=== PATIENT | male | born 1980 | race Caucasian/White ===

== ENCOUNTER 2020-03-08 12:55 | Outpatient (CLI) | payer OTHER, SELFPAY ==
--- NOTE | ~2020-03-08 | MR_ITS ---
EXAMINATION: MR brain/brain stem wo con DATE: 03/08/2020 13:45 INDICATION: Unspecified convulsions. Syncope. TECHNIQUE: Magnetic resonance imaging (MRI) of the brain and brainstem was performed without intraven ous contrast. Sequences included sagittal and axial T1-weighted FSE, axial diffusion-weighted FS EPI, axial T2*-weighted GRE, axial T2-weighted FLAIR Propeller, axial T2-weighted Propeller, coronal T2-w eighted FLAIR, and coronal T1-weighted 3D FSPGR. Apparent diffusion coefficient (ADC) maps were creat ed. COMPARISON: None. FINDINGS: There is no intracranial hemorrhage, acute infarction, or abnormal intracranial mass lesion . The hippocampi are normal and symmetric. There are scattered areas of nonspecific increased T2-weig hted signal intensity in the cerebral white matter, which is within normal limits for the patient's a ge. The ventricles are normal in size. There is mild mucosal thickening in left maxillary sinus. The orbits are normal. The mastoid air cells are normal. IMPRESSION: 1. Normal aging brain. Reviewed, dictated and finalized at location A. ER [employer] IMPRESSION: 1. Normal aging brain.
== END 2020-03-08 12:56 | disposition home or self-care (01) ==
PROVIDERS: PCP Nurse Practitioner Family; Visit Provider Nurse Practitioner
DX: R56.9 Unspecified convulsions (principal); R55 Syncope and collapse
CPT/HCPCS: 70551

== ENCOUNTER 2020-03-15 10:38 | Outpatient (CLI) | payer OTHER, SELFPAY ==
--- NOTE | 2020-03-15 10:46 | EST_ITS ---
Patient Info Name: Raine Morrison Age: 39 years : 1980 Gender: Male Exam Date: 03/15/2020 11:47 AM Exam Location: [facility], [place] Stress Patient Status: Outpatient Admit Date: 03/15/2020 Staff Ordering Physician: Janene Nascimento NP Attending Provider: Janene Nascimento NP Exercise Technologist: Nancy Arguelles CT Exercise Physician: Jim Reece DO Exam Type: CA stress test treadmill Study Info Indications R55 - Syncope and collapse A treadmill exercise stress test was performed. Summary 1. 1. Negative [place] exercise stress test for ischemic ST changes by ECG criteria. 2. 2. Good functional capacity, achieving 11 METs of workload. 3. 3. Baseline hypertension. 4. 4. Appropriate HR response to exercise. 5. 5. Appropriate HR recovery at 1 minute post exercise. 6. 6. No imaging with stress testing. 7. 7. Patient informed of the above results. Rest HR: 91 bpm Peak HR: 165 bpm Rest Sys BP: 167 mmHg Peak Sys BP: 217 mmHg Max Pred HR: 179 bpm % Max Pred HR: 92 % Target HR: 152 bpm Max RPP: 35,805 bpm*mmHg Termination Reason: Reached target heart rate or workload Cardiac Symptoms: Shortness of breath Rest Sommers BP: 109 mmHg Peak Sommers BP: 108 mmHg Resting ECG Sinus rhythm, IRBBB. Stress ECG No ST changes. Arrhythmias None. Report Signatures
== END 2020-03-15 10:39 | disposition home or self-care (01) ==
LOC: ANHCARD 10:39
PROVIDERS: PCP Nurse Practitioner Family; Visit Provider Nurse Practitioner
DX: R55 Syncope and collapse (principal); I10 Essential (primary) hypertension
CPT/HCPCS: 93017

== ENCOUNTER 2020-04-08 07:40 | Outpatient (CLI) | payer OTHER, MEDICAID, SELFPAY ==
--- NOTE | ~2020-04-08 | US_ITS ---
EXAMINATION: US carotid duplex BI DATE: 04/08/2020 08:18 INDICATION: Carotid stenosis. Syncope. TECHNIQUE: Grayscale, color Doppler, and pulsed Doppler images of the cervical carotid arteries were obtained. The degree of vessel stenosis is placed in one of the following categories: normal, <50%, 5 0-69%, >=70% but less than near-occlusion, near-occlusion, or total occlusion. Note that percent sten osis relative to normal distal artery lumen diameter is indirectly measured from velocity measurement s as described by Dave, et al. Radiology 2003; 229:[id number]. Notes: Normal: Peak systolic velocity <125 centimeters/sec and no plaque <50%. Peak systolic velocity <125 ( EDV <40; ICA/CCA PSV ratio <2.0; used these factors only a tandem lesions or low cardiac output or co ntralateral disease) 50-69 %: PSV 125-230 (EDV 40-100; ratio 2-4) >= 70% but less than near occlusion: PSV greater than 230 (EDV > 100; ratio> 4.0) Near Occlusion: PSV that is variable; markedly narrowed lumen Occlusion: Absent flow on color/spectral Doppler and no lumen on velasco scale. COMPARISON: None. FINDINGS: RIGHT: The right common carotid artery (CCA) peak systolic velocity (PSV) is 107 cm/s. The right internal ca rotid artery (ICA) PSV is 42 cm/s. The right ICA end-diastolic velocity (EDV) is 18 cm/s. The right I CA/CCA PSV ratio is 0.4. The external carotid artery (ECA) PSV is 66 cm/s. There is antegrade flow in the right vertebral artery. LEFT: The left CCA PSV is 90 cm/s. The left ICA PSV is 53 cm/s. The left ICA EDV is 27 cm/s. The left ICA/C CA PSV ratio is 0.6. The ECA PSV is 51 cm/s. There is antegrade flow in the left vertebral artery. IMPRESSION: 1. Less than 50% stenosis in the right internal carotid artery by sonographic criteria. 2. Less than 50% stenosis in the left internal carotid artery by sonographic criteria. Reviewed, dictated and finalized at location B. ER COMPRESSED GASES IMPRESSION: 1. Less than 50% stenosis in the right internal carotid artery by sonographic quinten baptiste. 2. Less than 50% stenosis in the left internal carotid artery by sonographic ramu howard.
== END 2020-04-08 07:41 | disposition home or self-care (01) ==
LOC: ANHIMG 07:44
PROVIDERS: PCP Nurse Practitioner Family; Visit Provider Nurse Practitioner
DX: R55 Syncope and collapse (principal); I65.23 Occlusion and stenosis of bilateral carotid arteries
CPT/HCPCS: 93880

== ENCOUNTER 2020-07-28 17:24 | Emergency (ER) | payer OTHER, MEDICAID, SELFPAY ==
[2020-07-28 17:37] VITALS: BP 175/124; PULSE 117; RESP 18; TEMP 36.9; O2SAT 99
[2020-07-28] MEDS: LIDOCAINE, EPINEPHRINE, TETRACAINE VISCOUS SOLN 3 ML TOPICAL (17:44)
[2020-07-28] MEDS: TETANUS,DIPHTHERIA,AC PERTUSSIS ADULT (0.5 ML) BOOSTRIX IM (17:47)
--- NOTE | 2020-07-28 18:22 | ED.WOUNDLAC ---
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 Patient states he was working on a truck when he lacerated his left small finger an hour or 2 prior to arrival, on plastic. He complains of mild pain and bleeding is worse with movement, better with elevation or compression, located at the lateral PIP crease area. No numbness/weakness, other injury. Screening vital signs remarkable for high blood pressure, for which he had a stress test in the past half year which is noncontributory except for known untreated HTN [along with stable/noncontributory blood work]. Related Data Allergies Allergy/AdvReac Type Severity Reaction Status Date / Time pseudoephedrine Allergy Intermediate hives Verified 02/20/20 09:40 [From Sudafeghassan] codeine Allergy Unknown hives Verified 02/20/20 09:40 diphenhydramine Allergy Unknown hives Verified 02/20/20 09:40 Penicillins Allergy Unknown Verified 07/28/20 17:37 DIPHENHYDRAMINE HCL AdvReac Unknown NAUSEA Uncoded 02/20/20 09:40 Review of Systems Review of Systems: Narrative: General/Constitutional: No weight loss,fever Eyes: N0: Redness,discharge Ears/Nose/Throat: No: Epistaxis,ear discharge Respiratory: Denies: Hemoptysis Gastrointestinal: No Vomiting, Bleeding-rectal Skin: No Lumps, eruption Neurologic: No Focal Weakness,Sz Hematologic: Denies: Petechiae/Purpura Psychiatric: No: Suicida ideationl All Other Systems: Reviewed and Negative [facility] Surgical History Surgical History (System 02/20/20 @ 09:40 by Anna Levine) H/O left wrist surgery Family History Family History (System 02/20/20 @ 09:40 by Anna Levine) Mother Hypertension Sibling Seizure Hypertension Social History Social History (System 02/20/20 @ 09:40 by Anna Levine) Smoking status: Current every day smoker Alcohol intake: current Comments At time of signature, agree with nursing past medical, surgical, social and family history. There is no relevant family history pertinent to the presenting complaint Exam Narrative: Exam Narrative: General Appearance: Well appearing, Conjunctiva clear Mouth/Throat: Normal appearing, Normal lips: Supple Respiratory: Airway patent, No respiratory distress MS- finger: Normal strength (mostly intact, limited flexion/extension by pain), Tenderness ( laterally, with mild decreased ROM), Scant swelling y), Other (no anterior drawer, no collateral laxity Skin: Warm, Dry, Normal color Neurological: A&O x3, Speech clear, CN II-XII intact Psychiatric: Normal mood, Normal affect Course Vital Signs Vital signs: Vital Signs Temperature 98.5 F 07/28/20 17:37 Pulse Rate 117 H 07/28/20 17:37 Respiratory Rate 18 07/28/20 17:37 Blood Pressure 175/124 H 07/28/20 17:37 Pulse Oximetry 99 07/28/20 17:37 Temperature 98.5 F 07/28/20 17:37 Pulse Rate 117 H 07/28/20 17:37 Respiratory Rate 18 07/28/20 17:37 Blood Pressure 167/111 H 07/28/20 18:31 Pulse Oximetry 99 07/28/20 17:37 Procedures Laceration Laceration 1: Date: 07/28/20 Site: hand Side (If applicable): left Size (cm): 1.5 Description: flap Depth: simple, single layer Local Anesthetic: none (LET) Pre-repair: irrigated extensively ====== Skin Level ====== Skin layer closed with: nylon Size (cm): 5-0 Number of sutures: 3 Technique: simple, interrupted ====== Subcutaneous Layer ====== ====== Muscle Layer ====== ====== Tendon Layer ====== Discharge Plan Discharge Clinical Impression: Laceration of left little finger Qualifiers: Encounter type: initial encounter D
[2020-07-28 18:31] VITALS: BP 167/111
== END 2020-07-28 18:32 | disposition home or self-care (01) ==
PROVIDERS: Emergency Provider Emergency Medicine
DX: S61.217A Laceration without foreign body of left little finger without damage to nail, initial encounter (principal); W45.8XXA Other foreign body or object entering through skin, initial encounter; Y99.0 Civilian activity done for income or pay; Z23 Encounter for immunization; F17.200 Nicotine dependence, unspecified, uncomplicated
CPT/HCPCS: 12001; 90471; 90715; 99213; G0463

== ENCOUNTER 2022-06-18 14:00 | Outpatient (RCR) | payer OTHER, SELFPAY ==
--- NOTE | 2022-04-06 09:18 | PTOPEVAL1 ---
Assessment and note entered by Jose Armando Agrawal, PT Evaluation Information Assessment Status Evaluation Diagnosis S/P PLIF C2-C4 01/15/22 Subjective Information Patient reports he had an accident doing a flip into the foam pit and had a C3 fx. Had surgery on 01/15/22. Saw neurosurgery on 03/17/22 and was told to start physical therapy, can take the collar off when showering, has a 15 lbs lifting restriction, and sleep in bed instead of sitting up. Reported Pain Level Pain Score 4: Self Report Additional Pain Score Comments Worst after being at work, reports he does not break lifting restrictions. Assessment PT Clinical Summary Raine is a 41 year old male coming into the clinic with diagnosis of C2-C4 fusion following C3 fx. Patient is in the [facility] hard cervical collar, but reports he is working on getting a soft collar with neurosurgery's okay. Patient has decreased cervical range of motion with decreased strength. Physical therapy will work on improving strength and endurance and progress back to prior injury level of function with okay from neurosurgery. Plan of Care Interventions Electrical Stimulation,Gait Training,Hot Pack/Cold Pack,Manual Therapy,Neuro Re-education,Patient/ Caregiver Education,Therapeutic Activities, Therapeutic Exercise,Ultrasound PT Services Indicated Yes Treatment Frequency and 2x/wk for 6 weeks Duration These treatments will address the objective and functional deficits as defined above. The patient will be advanced safely and appropriately in order for the patient to progress towards his/her prior level of function. Additional exercises will be introduced and as well as a comprehensive home exercise program upon discharge, if needed, ?to ensure carryover of functional gains achieved in the clinic. This treatment plan has been reviewed and agreement upon by the patient.
--- NOTE | 2022-04-09 08:45 | PCPTNOTE ---
Called Pt about missed appointment and Pt rescheduled due to thinking his appointment was tomorrow. Pt is scheduled for 04/10/22 @ 14:00.
--- NOTE | 2022-05-18 16:23 | PCPTNOTE ---
Patient did not show up for scheduled appointment this date. Left voicemail on phone to reschedule or discharge.
--- NOTE | 2022-05-21 10:24 | PTOPREEVAL ---
Assessment and note entered by Jose Armando Agrawal, PT Evaluation Information Assessment Status Re-evaluation Diagnosis S/P PLIF C2-C4 01/15/22 Subjective Information Patient reports he has returned to work. He is still wearing his cervical collar. Reports he does his exercises with his daughters. Father recently passed which is why he no showed on his last appointment, Reported Pain Level Pain Score 4: Self Report Additional Pain Score Comments Patient reports pain is constantly 3-4/10 with 7 at its worst. Assessment PT Clinical Summary Adin is a 41 year old male coming to the clinic for post op cervical ROM and strengthening. He was evaluated on Apr 06 and attended 12 sessions with 2 no shows. The patient still has decreased in range of motion, but talked to him and that there is no reason that he needs to be in the cervical collar as much as he is and needs to start getting out of it more if he wants more range of motion. That being said he did increased his cervical range of motion in all planes. Recommend continued physical therapy. Plan of Care Interventions Electrical Stimulation,Gait Training,Hot Pack/Cold Pack,Manual Therapy,Neuro Re-education,Patient/ Caregiver Education,Therapeutic Activities, Therapeutic Exercise,Ultrasound Other Interventions taping PT Services Indicated Yes Treatment Frequency and 1-2x/wk for 4 weeks Duration These treatments will address the objective and functional deficits as defined above. The patient will be advanced safely and appropriately in order for the patient to progress towards his/her prior level of function. Additional exercises will be introduced and as well as a comprehensive home exercise program upon discharge, if needed, ?to ensure carryover of functional gains achieved in the clinic. This treatment plan has been reviewed and agreement upon by the patient.
--- NOTE | 2022-06-18 14:30 | PTOPDC ---
Assessment and note entered by Jose Armando Agrawal, PT Evaluation Information Assessment Status Discharge Diagnosis cervical spinal fusion Subjective Information Patient reports pain at a 2/10 at its worst, returned to work working 10-12 hours a day, able to lift up his daughter without issue, but anything above 35 pounds is still hard. Unsure when his next surgical follow-up is or if he has one. No longer wearing the brace. Reported Pain Level Pain Score 2: Self Report Assessment PT Clinical Summary Doc is a 41 year old male coming into the clinic after having a cervical fusion surgery. He has met his pain, sensation, strength, and return to work goals along with flexion, extension, and MARYAM lateral flexion goals. Has not met rotation yet, but do not believe the patient needs to continue skilled physical therapy just for rotation goal. Discharged from skilled physical therapy at this time. He has returned to work, but if surgeon feels he needs more to do his job duties recommend going to a facility that has a work hardening program. Plan of Care PT Services Indicated No
== END 2022-06-22 09:51 | disposition home or self-care (01) ==
LOC: ANHPT 14:00
PROVIDERS: PCP Family Medicine
DX: Z47.89 Encounter for other orthopedic aftercare (principal); Z98.1 Arthrodesis status
CPT/HCPCS: 97110; 97112; 97140; 97161; 97530; 99199

== ENCOUNTER 2023-06-28 06:15 | Day surgery (SDC) | payer OTHER, SELFPAY ==
[2023-06-01 13:37] VITALS: BMI 23.4
[2023-06-11 11:27] VITALS: BMI 23.3
[2023-06-28 07:32] VITALS: BP 150/108; PULSE 96; RESP 18; TEMP 36.6; O2SAT 100
--- NOTE | 2023-06-28 07:36 | WPDANESEPPF ---
Anes - Initial Pre Proc Eval Procedure: Operation Date: 06/28/23 08:30 Proposed Procedures p Screening Colonoscopy - Roverto Henry DO Date/Time: 06/28/23 07:36 Surgeon: Roverto Henry DO Pre Op Diagnosis: Neoplasm screening Patient Data Age: 43 Gender: M Height: 1.65 m Weight: 63.65 kg Last Vital Signs Temp 36.6 C 06/28/23 07:32 Pulse 96 06/28/23 07:32 Resp 18 06/28/23 07:32 BP 150/108 H 06/28/23 07:32 Pulse Ox 100 06/28/23 07:32 O2 Del Method Room Air 06/28/23 07:32 Allergies Allergy/AdvReac Type Severity Reaction Status Date / Time pseudoephedrine Allergy Intermediate hives Verified 06/28/23 07:30 [From [facility]] codeine Allergy Unknown hives Verified 06/28/23 07:30 diphenhydramine Allergy Unknown hives Verified 06/28/23 07:30 Penicillins Allergy Unknown Verified 06/28/23 07:30 Home Medications Medication Instructions Recorded Confirmed Type aspirin 81 mg tablet,delayed 81 mg PO DAILY 04/15/21 06/28/23 History release lisinopril 20 mg tablet 20 mg PO DAILY #30 tabs 09/16/21 06/28/23 Rx metoprolol tartrate 25 mg tablet 25 mg PO BID #60 tabs 05/10/23 06/28/23 Rx Patient hx anesthesia problems: none Family hx anesthesia problems: none Results Review: All pre-operative results and documents have been reviewed as part of the pre-operative evaluation. [facility] Past Medical History Medical History (Updated 06/28/23 @ 08:50 by Roverto Henry DO) C3 cervical fracture HTN (hypertension) FERNANDA (obstructive sleep apnea) Seizure Surgical History Surgical History H/O left wrist surgery Family History Family History Mother Hypertension Sibling Seizure Hypertension Heart disease Social History Social History Smoking packs per day: 1 Smoking cigarettes per day: 20.0 Years smoked: 25 Smoking pack-years: 25.00 Smoking status: Current every day smoker Tobacco type: cigarettes Second hand tobacco smoke exposure: Yes Alcohol intake: former Substance use: current Substance use type: marijuana Living arrangements: with family Occupation/Education: occupation Gender identity (if verbalized by the patient): Male Sexual Orientation (if Verbalized by the Patient): Straight or Heterosexual Spiritual care concerns: No Anes - Eval Final PreProcedure Day of Procedure 06/28/23 07:36 Patient weight: normal Heart: regular rate and rhythm Lungs: clear to auscultation and normal air movement Airway: Mallampati scale class II Neurological: alert and oriented Last oral intake: >/= 8 hours ASA classification: III Emergent: no Anesthetic plan: proceed Anesthesia type and monitoring: general GIVS and standard monitoring Results Review: All pre-operative results and documents have been reviewed as part of the pre-operative evaluation. Informed Consent: The patient's anesthetic plan and its attendant risks and benefits were discussed with the patient/family/POA. Questions were solicited and answers provided to the satisfaction of the patient/family/POA.
[2023-06-28] MEDS: LACTATED RINGERS 1,000 ML 150 ML IV CONT (07:43)
--- NOTE | 2023-06-28 08:49 | PM.IMHP ---
H&P: HPI History of Present Illness Date/Time: 06/28/23 08:49 Chief Complaint: screening for colorectal cancer Narrative: this is a 43-year-old man who presents for colonoscopy. He has never had a colonoscopy before. He did see any family history of colon cancer and denies any hematochezia or melena. Review of Systems Review of Systems: All systems reviewed & are unremarkable except as noted in HPI and below Constitutional: Constitutional: Denies chills, Denies fever(s), Denies headache(s) and Denies weight loss Eyes: Eyes: Denies change in vision ENT: Denies dizziness, Denies headache(s), Denies neck mass and Denies throat swelling Cardiovascular: Cardiovascular: Denies chest pain, Denies lightheadedness and Denies dyspnea Respiratory: Respiratory: Denies cough, Denies dyspnea and Denies wheezing Gastrointestinal: Gastrointestinal: Denies abdominal pain, Denies change in bowel habits, Denies nausea and Denies vomiting Genitourinary: Genitourinary: Denies hematuria and Denies dysuria Musculoskeletal: Musculoskeletal: Reports as per HPI Integumentary/Breasts: Skin/Breast: Reports as per HPI Neurologic: Denies dizziness and Denies headache(s) Allergic/Immunologic: Allergic/Immunologic: Denies throat swelling and Denies wheezing [facility] Past Medical History Medical History (Updated 06/28/23 @ 08:50 by Roverto Henry DO) C3 cervical fracture HTN (hypertension) FERNANDA (obstructive sleep apnea) Seizure Surgical History Surgical History H/O left wrist surgery Family History Family History Mother Hypertension Sibling Seizure Hypertension Heart disease Social History Social History Smoking packs per day: 1 Smoking cigarettes per day: 20.0 Years smoked: 25 Smoking pack-years: 25.00 Smoking status: Current every day smoker Tobacco type: cigarettes Second hand tobacco smoke exposure: Yes Alcohol intake: former Substance use: current Substance use type: marijuana Living arrangements: with family Occupation/Education: occupation Gender identity (if verbalized by the patient): Male Sexual Orientation (if Verbalized by the Patient): Straight or Heterosexual Spiritual care concerns: No Meds Home Medications and Allergies Home Medications Medication Instructions Recorded Confirmed Type aspirin 81 mg tablet,delayed 81 mg PO DAILY 04/15/21 06/28/23 History release lisinopril 20 mg tablet 20 mg PO DAILY #30 tabs 09/16/21 06/28/23 Rx metoprolol tartrate 25 mg tablet 25 mg PO BID #60 tabs 05/10/23 06/28/23 Rx Allergies Allergy/AdvReac Type Severity Reaction Status Date / Time pseudoephedrine Allergy Intermediate hives Verified 06/28/23 07:30 [From Sudafed] codeine Allergy Unknown hives Verified 06/28/23 07:30 diphenhydramine Allergy Unknown hives Verified 06/28/23 07:30 Penicillins Allergy Unknown Verified 06/28/23 07:30 Vital Signs Vital Signs - 24 hr 06/28/23 07:32 Temperature 36.6 C Pulse Rate 96 Respiratory Rate 18 Blood Pressure 150/108 H Pulse Oximetry 100 Oxygen Delivery Room Air Exam Const: General: no acute distress and alert Orientation/consciousness: patient oriented x3 HENMT: Head: normocephalic and atraumatic Ears: hearing grossly normal bilaterally Face/Nose/Sinus: Normal nares present Mouth: Yes Normal oral and palatal mucosa present Eyes: Periorbital: periorbital findings normal Sclera: sclerae normal EOM: EOMs intact bilaterally Neck: Neck: normal visual inspection, no lymphadenopathy and trachea midline Chest: Chest palpation & inspection: normal inspection of the chest Resp: Effort & Inspection: normal respiratory effort Auscultation: clear to auscultation bilaterally Cardio: Jugular venous distension: no JVD Rate: regular rate Rhythm
[2023-06-28 09:22] VITALS: BP 114/86; PULSE 90; RESP 20; O2SAT 100
[2023-06-28 09:32] VITALS: BP 127/97; PULSE 84; RESP 14; O2SAT 100
[2023-06-28 09:42] VITALS: BP 149/105; PULSE 80; RESP 14; O2SAT 100
--- NOTE | 2023-06-28 10:36 | WPDANESPN ---
Anes - Prog Note Post-Op Date/Time: 06/28/23 10:36 Cardiovascular status: normal Respiratory status: normal Airway patency: baseline Mental status: baseline Post-Op hydration status: normal Vital Signs: Last Vital Signs Temp 36.6 C 06/28/23 07:32 Pulse 80 06/28/23 09:42 Resp 14 06/28/23 09:42 BP 149/105 H 06/28/23 09:42 Pulse Ox 100 06/28/23 09:42 O2 Del Method Room Air 06/28/23 09:42 Pain Score (VAS): 0 I/O: Intake & Output 06/27/23 06/28/23 06/28/23 23:59 07:59 15:59 Intake Total 700 Balance 700 Post-procedural complaints: none Patient Feedback: Patient satisfied with anesthetic care. Other Findings: Patient vital signs back to baseline. Patient denies nausea and vomiting. Patient's pain under control. Patient OK for discharge.
== END 2023-06-28 09:53 | disposition home or self-care (01) ==
PROVIDERS: PCP Family Medicine; Visit Provider Surgery
PROC: 0DJD8ZZ Inspection of Lower Intestinal Tract, Via Natural or Artificial Opening Endoscopic (ICD-10-PCS; CPT 45378; principal; 2023-06-28 08:30)
DX: Z12.11 Encounter for screening for malignant neoplasm of colon (principal); D12.2 Benign neoplasm of ascending colon; D12.5 Benign neoplasm of sigmoid colon; K57.30 Diverticulosis of large intestine without perforation or abscess without bleeding
CPT/HCPCS: 45385

== ENCOUNTER 2023-06-28 07:00 | Outpatient (NON) | payer OTHER, SELFPAY | END 2023-06-28 07:01 | disposition home or self-care (01) | LOC: ANHLAB 06-29 07:27 | PROVIDERS: PCP Family Medicine; Visit Provider Surgery | DX: Z12.11 Encounter for screening for malignant neoplasm of colon (principal); Z12.12 Encounter for screening for malignant neoplasm of rectum | CPT/HCPCS: 88305 ==

== ENCOUNTER 2024-02-13 13:28 | Emergency (ER) | payer OTHER, MEDICAID, SELFPAY ==
--- NOTE | ~2024-02-13 | XR_ITS ---
EXAMINATION: XR chest 2V Exam Date/Time: 02/13/2024 14:49 APARTMENT MAINTENANCE HISTORY: cough x2 weeks, sob Comparison: None. RESULT: Lines, tubes, and devices: None. Lungs and pleura: Clear. Cardiomediastinal silhouette: Normal. Other: No acute osseous or upper abdominal finding. IMPRESSION: No acute cardiopulmonary process. Reviewed, dictated and finalized at location [facility]. TMENT MAINTENANCE
[2024-02-13 14:13] VITALS: BP 135/96; PULSE 140; RESP 16; TEMP 36.6; O2SAT 100
--- NOTE | 2024-02-13 14:47 | ED.URI ---
HPI - URI/Sore Throat General Chief Complaint: Upper Respiratory Infection Stated Complaint: COUGH/LOSING VOICE/CONGESTION Time Seen by Provider: 02/13/24 14:40 Source: patient, family () and RN notes reviewed Mode of arrival: ambulatory Limitations: no limitations History of Present Illness HPI Narrative: Patient presents today with a 2 week history of cough that has been worsening since onset, hoarse voice, nasal congestion, mild shortness of breath. Denies fever. He has tried some Delsym and cough drops with some mild relief. No history of asthma or COPD. He smokes 1 pack per day. Related Data Home Medications ?Medication ?Instructions ?Recorded ?Confirmed ?Last Taken ?Type aspirin 81 mg tablet,delayed 81 mg PO DAILY 04/15/21 01/18/24 Unknown History release Allergies Allergy/AdvReac Type Severity Reaction Status Date / Time pseudoephedrine (From Allergy Intermediate hives Verified 02/13/24 14:08 Sudafed) codeine Allergy Unknown hives Verified 02/13/24 14:08 diphenhydramine Allergy Unknown hives Verified 02/13/24 14:08 Penicillins Allergy Unknown Verified 02/13/24 14:08 Review of Systems Review of Systems: CONSTITUTIONAL: Denies body aches, fever, chills, or sweats. EYES: Denies visual changes, redness, or discharge. ENT: Denies rhinorrhea, sore throat, or otalgia.+ congestion, hoarseness CARDIOVASCULAR: Denies chest pain, palpitations, or edema. RESPIRATORY: + cough, shortness of breath GASTROINTESTINAL: Denies abdominal pain, nausea, vomiting, or diarrhea. GENITOURINARY: Denies dysuria or hematuria. SKIN: Denies rash, itching, or wounds. MUSCULOSKELETAL: Denies back pain, joint pain, or myalgia. NEUROLOGIC: Denies headache, numbness, tingling, or weakness. PSYCH: Denies depression or anxiety. [facility] Past Medical History Medical History Seizure C3 cervical fracture FERNANDA (obstructive sleep apnea) HTN (hypertension) Surgical History Surgical History H/O left wrist surgery Family History Family History Mother Hypertension Sibling Seizure Hypertension Heart disease Social History Social History (Reviewed 02/13/24 @ 14:48 by Magdalena Dueñas, [facility], ) Smoking packs per day: 1 Smoking cigarettes per day: 20.0 Years smoked: 25 Smoking pack-years: 25.00 Smoking status: Current every day smoker Tobacco type: cigarettes Second hand tobacco smoke exposure: Yes Alcohol intake: former Substance use: current Substance use type: marijuana Living arrangements: with family Occupation/Education: occupation Gender identity (if verbalized by the patient): Male Sexual Orientation (if Verbalized by the Patient): Straight or Heterosexual Spiritual care concerns: No Comments At time of signature, I have reviewed and agree with nursing past medical, surgical, social and family history unless otherwise noted. Please see nursing chart for further information. There is no relevant family history pertinent to the presenting complaint Exam Narrative: GENERAL: Mildly ill appearing, well-nourished, and in no acute distress. HEAD: Normocephalic, atraumatic. EYES: EOMI. No redness or drainage. Conjunctivae normal. ENT: Mucous membranes pink and moist. Nares clear. No rhinorrhea. TMs normal bilaterally. Throat normal. Uvula midline. NECK: Normal AROM. Supple. No lymphadenopathy. CHEST: No respiratory distress. Diminished throughout HEART: Regular rate and rhythm. No murmur appreciated. EXTREMITIES: Normal range of motion. No edema. SKIN: Warm, dry, no rash. Capillary refill normal. Normal skin turgor. NEURO: No focal deficits. Alert and oriented x3. Gait steady. PSYCH: Normal affect. No signs of depression or anxiety. Course Course Level of Care: Express Care Visit Vital Signs Vital signs: Vital Signs Temperature 97.8 F 02/13/24 14:13 Pulse Rate 140 H 02/13/24 14:13 Respiratory Rate 16 02/13/24 14:13 Blood Pressure 135/96 H 02/13/24 14:13 Pulse Oximetry 100 02/13/24 14:13 Temperature 97.8 F 02/13/24 14:13 Pulse Rate 140 H 02/13/24 14:13 Respiratory Rate 16 02/13/24 14:13 Blood Pressure 135/96 H 02/13/24 14:13 Pulse Oximetry 100 02/13/24 14:13 Reviewed MDM - URI/Sore Throat MDM Narrative Medical decision making narrative: Chest x-ray is negative. Patient will be started on doxycycline for sinusitis and prednisone for bronchitis as well as some Tessalon Perles for cough. Patient agrees with plan. Anticipatory guidance given. Differential Diagnosis Differential diagnosis: Likely upper respiratory infection, sinusitis, viral infection, bronchitis and other (Pneumonia) Imaging Data Radiologist's impression: ITS Impressions Chest X-Ray 02/13/24 15:02 IMPRESSION: No acute cardiopulmonary process. Critical Care Time Critical Care Time Critical Care Time: No Discharge Plan Discharge Clinical Impression: Bronchitis Sinusitis Qualifiers: Sinusitis location: unspecified location Chronicity: acute Recurrence: non-recurrent Qualified Code(s): J01.90 - Acute sinusitis, unspecified Patient Disposition: Home, Self-Care Condition: Stable Instructions: Antibiotic Form, Sinusitis (ED), Acute Bronchitis (ED) Additional Instructions: Your chest x-ray is negative for pneumonia. Please take all medications as prescribed. Follow-up with your PCP in 3 days if symptoms are not improving. Your blood pressure was elevated above 120/80 today at Urgent Care. This puts you above the threshold for follow up. Please schedule a followup visit with your personal physician as soon as possible, for further evaluation and treatment. Even blood pressure exceeding 120/80 may indicate pre-hypertension. Patient Language: Slovenian Prescriptions: New benzonatate 200 mg capsule 200 mg PO TID PRN (Reason: cough) Qty: 20 0RF prednisone 20 mg tablet 40 mg PO DAILY 5 Days Qty: 10 0RF doxycycline hyclate 100 mg tablet 100 mg PO BID 7 Days Qty: 14 0RF No Action aspirin 81 mg tablet,delayed release (DR/EC) 81 mg PO DAILY metoprolol tartrate 25 mg tablet 25 mg PO BID Qty: 60 2RF lisinopril 20 mg tablet 20 mg PO DAILY Qty: 90 1RF Follow-up/Referrals: Alberto Castillo MD [Primary Care Provider] - Time of Disposition: 15:18
== END 2024-02-13 15:21 | disposition home or self-care (01) ==
PROVIDERS: Emergency Provider Nurse Practitioner; PCP Family Medicine
DX: J40 Bronchitis, not specified as acute or chronic (principal); J01.90 Acute sinusitis, unspecified; F17.210 Nicotine dependence, cigarettes, uncomplicated; F12.90 Cannabis use, unspecified, uncomplicated; I10 Essential (primary) hypertension; Z79.82 Long term (current) use of aspirin
CPT/HCPCS: 71046; 99213; G0463

== ENCOUNTER 2024-11-12 14:04 | Emergency (ER) | payer OTHER, MEDICAID, SELFPAY ==
--- NOTE | ~2024-11-12 | CT_ITS ---
EXAMINATION: CT pelvis wo con COMPARISON: None HISTORY: fall, pain tailbone TECHNIQUE: Axial images were obtained without IV contrast. Sagittal, coronal reconstruction images were obtained from the axial views. CT scan performed using dose optimization techniques including the following automated exposure control; adjustment of mA and/or kV; use of iterative reconstruction technique. Automatic exposure control was used to reduce radiation dose. Permanent radiation dose record is archived to PACS. FINDINGS: The sacroiliac joints are intact. There are no significant degenerative changes of the acetabular femoral joints of the symphysis. This. There is no fracture or dislocation. No avascular necrosis. No joint effusion is identified The intrapelvic soft tissues are unremarkable. There is no subcutaneous fluid collection or intramuscular hemorrhage identified. IMPRESSION: No fracture identified Reviewed, dictated and finalized at location A. IMPRESSION: No fracture identified
--- NOTE | ~2024-11-12 | CT_ITS ---
EXAMINATION: CT brain wo con COMPARISON: None HISTORY: fall, hi TECHNIQUE: Axial images were obtained through the brain without IV contrast. CT scan performed using dose optimization techniques including the following automated exposure control; adjustment of mA and/or kV; use of iterative reconstruction technique. Automatic exposure control was used to reduce radiation dose. Permanent radiation dose record is archived to PACS. FINDINGS: No acute infarct or parenchymal hemorrhage. No abnormal mass or mass effect. No midline shift. No extra-axial fluid collections. No hydrocephalus. . Mastoid air cells unremarkable. Moderate left maxillary sinusitis with underlying polyp formation suspected No acute fracture. No significant facial or scalp soft tissue swelling evident. No radiopaque foreign body is seen. Impression: 1.No acute intracranial abnormality. Reviewed, dictated and finalized at location A. Impression: 1.No acute intracranial abnormality.
--- NOTE | ~2024-11-12 | CT_ITS ---
EXAMINATION: CT cervical spine wo con COMPARISON: None HISTORY: fall, hi TECHNIQUE: Axial images were obtained through the spine without IV contrast. Coronal, sagittal reconstruction images were obtained from the axial views. CT scan performed using dose optimization techniques including the following automated exposure control; adjustment of mA and/or kV; use of iterative reconstruction technique. Automatic exposure control was used to reduce radiation dose. Permanent radiation dose record is archived to PACS. FINDINGS: No acute fracture or subluxation.There are pedicle screws and rods fixating C2- C3 and C4, the hardware is intact with no lucency around the hardware. Moderate loss of disc height at C2-3 and C5-6 with moderate canal and foraminal stenosis. 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 Impression: No acute abnormality. Reviewed, dictated and finalized at location A. Impression: No acute abnormality.
--- OUTSIDE RECORDS SUMMARY | 2024-11-12 14:06 | XMS_ITS | Clinical Summary ---
Author Organization [facility] [place] [facility] Address [address] [place] [address] Care Team Providers Care Confectionery Cooker Name Role Phone Alberto Castillo MD Primary Care Provider Allergies Active Allergy Reactions Criticality Noted Date Comments Diphenhydramine Hives Medium 05/14/2021 Codeine Nausea & Vomiting Low 05/14/2021 Penicillins Nausea & Vomiting Low 05/14/2021 Medications metoprolol tartrate (LOPRESSOR) 25 mg immediate release tablet Take 1 tablet (25 mg total) by mouth daily 04/15/2021 Active aspirin 81 mg enteric coated tablet Take 1 tablet (81 mg total) by mouth daily Active lisinopriL (PRINIVIL,ZESTRI L) 20 mg tablet Take 1 tablet by mouth once daily 90 tablet 05/18/2023 Active Active Problems Problem Noted Date Diagnosed Date Paroxysmal atrial fibrillation 11/04/2023 Status post placement of implantable loop record er 08/06/2022 Overview (08/06/2022): Medtronic LNQ22 Loop Recorder. Dx; Palpitations. DOI 08/20/2022-[place]. Jennifer Latham. [employer] remote monitoring. H/O syncope 07/29/2022 FERNANDA on CPAP 07/29/2022 Loss of consciousness 06/17/2022 Syncope and collapse 06/17/2022 Mixed hyperlipidemia 06/24/2021 Inappropriate sinus tachycardia 05/14/2021 Palpitations 05/14/2021 Essential hypertension 05/14/2021 H/O ETOH abuse 05/14/2021 Tobacco abuse 05/14/2021 Medication side effects 05/14/2021 Abnormal LFTs (liver function tests) 05/14/2021 Encounters Date Type Department Care Team Description 10/23/2024 7:15 AM CDT Ancillary Procedure [facility] [address] [place] [address] [place] [address] Status post placement of implantable loop recorder (Primary Dx); Palpitations; H/O syncope 09/11/2024 10:30 AM CDT Ancillary Procedure [facility] [address] [place], [place] [address] [address] Status post placement of implantable loop recorder (Primary Dx); Palpitations; H/O syncope from Last 3 Months Surgical History Surgery Date Site/Laterality Comments NECK SURGERY 01/15/2022 Fusion and hardware WRIST FRACTURE SURGERY 03/01/2017 - 02/28/2018 Left hardware present Medical History Medical History Date Comments Hypertension Sleep apnea Family History Medical History Relation Name Comments Hypertension Brother Heart attack Father Hypertension Mother Hypertension Sister Relation Name Status Comments Brother Father (Age 42) Mother Sister Social History Tobacco Use Types Packs/Day Years Used Date Smoking Tobacco: Some Days Cigarettes Smokeless Tobacco: Never AUDIT-C Answer Date Recorded Q1: How often do you have a drink containing alc ohol? Monthly or less 08/20/2022 Q2: How many drinks containi ng alcohol do you have on a typical day when you are drinking? 1 or 2 08/20/2022 Q3: How often do you have si x or more drinks on one occasion? 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 Gender Identity Not on file Sexual Orientation Not on file Obstetrics History Last Filed Vital Signs Vital Sign Reading Time Taken Comments Blood Pressure 120/82 11/04/2023 10:34 AM CDT Pulse 84 11/04/2023 10:34 AM CDT Temperature 36.9 C (98.4 F) 08/20/2022 9:12 AM CDT Respiratory Rate 18 08/20/2022 9:12 AM CDT Oxygen Saturation 97% 11/04/2023 10: 34 AM CDT Inhaled Oxygen Concentration - - Weight 61.6 kg (135 lb 12.8 oz) 024 10:34 AM CDT Height 165.1 cm (5' 5) 11/04/2023 10:3 4 AM CDT Body Mass Index 22.6 11/04/2023 10:34 AM CDT Plan of Treatment Health Maintenance Due Date Last Done Comments Colon Cancer Screening-Colonoscopy 1978 Depression Screening 1978 Hepatitis C Screening 1978 Hepatitis B Screening 1996 Regular Well Visit/Exam 18-64 1996 Pneumococcal vaccine <65 (1 of 2 - PCV) 1997 Influenza Vaccine (#1) 2024 DTaP/Tdap/Td Vaccine (2 - Td or Tdap) 07/28/2030 07/28/2020 HPV Vaccines Aged Out No longer eligi ble based on patient's age to complete this topic Medical Devices Implanted Type Area Waiter/Waitress Club Device Identifier Shelf Expiration Date Model / Serial / Lot Medtronic Inc Reveal Linq Ii Implantable Defence Force Senior Officer Lnq22 - [id number] - [id number] Implanted:Qty: 1 on 08/20/2022 by Kallie Aquino DO at [facility] [employer] [id number] 10/07/2023 LNQ22 / [id number] / Procedures Procedure Name Priority Date/Time Associated Diagnosis Comments DEVICE CHECK - REMOTE Routine 10/24/2024 7:13 AM CDT Palpitations H/O syncope DEVICE CHECK - REMOTE Routine 09/12/2024 10:50 AM CDT Palpitations H/O syncope from Last 3 Months Results * DEVICE CHECK - REMOTE (10/24/2024 7:13 AM CDT) Anatomical Region Laterality Modality Other Narrative 11/03/2024 12:42 PM CDT Medtronic LNQ22 Loop Recorder. Dx; Palpitations. DOI 08/20/2022-[place]. [facility]. [facility] remote monitoring. Routine ILR remote. Normal device function. Battery function-good Presenting rhythm: NSR Medications: ASA 81 mg, lisinopril 20 mg, metoprolol 25 mg Counters since last scheduled transmission on 09/11/24. --1 Tachy - EGM demonstrates inappropriate detection due to oversensing of noise --0 Rufino --0 Pause --0 Symptom --0 AF See scanned report. [facility] remote f/u 12/04/24. Denver Shepherd RN Leonardo Lowe MD [facility] PRO CEDURES Final Result * DEVICE CHECK - REMOTE (09/12/2024 10:50 AM CDT) Anatomical Region Laterality Modality Other Narrative 10/09/2024 7:36 AM CDT [employer] LNQ22 Loop Recorder. Dx; Palpitations. DOI 08/20/2022-[place]. [facility]. [facility] remote monitoring. Routine ILR remote. Normal device function. Battery function-good Presenting rhythm: NSR Medications: ASA 81 mg, lisinopril 20 mg, metoprolol 25 mg Counters since last scheduled transmission on 07/31/24. --2 Tachy - no EGMs available for tachy detections between 07/31/24 and 09/11/24. Last available tachy episode on [facility] is from 06/18/24. Historically, tachy detections have been inappropriate due to noise. --0 Rufino --0 Pause --0 Symptom --0 AF See scanned report. [facility] remote f/u 10/23/24. Denver Shepherd RN Leonardo Lowe MD [facility] PRO CEDURES Final Result from Last 3 Months Insurance IDPA [facility] [place] Care Teams Confectionery Cooker Relationship Specialty Start Date End Date Alberto Castillo MD [address] [place] [address] PCP - General Family Medicine 05/14/21
[2024-11-12 14:16] VITALS: BP 157/109; PULSE 92; RESP 19; TEMP 36.9; O2SAT 98
--- OUTSIDE RECORDS SUMMARY | 2024-11-12 14:45 | XMS_ITS | Clinical Summary ---
Author Organization [facility] [place] [facility] Address [address] [place] [address] Care Team Providers Care Ornamental Ironworker Helper Name Role Phone Alberto Castillo MD Primary [...] Description 10/23/2024 7:15 AM CDT Ancillary Procedure [facility] [address] [place] [address] [place] [address] Status post placement of implantable loop recorder (Primary Dx); Palpitations; H/O syncope 09/11/2024 10:30 AM CDT Ancillary Procedure [facility] [address] [place], [place] [address] [address] Status post placement of implantable loop recorder [...] on file 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 Dx; Palpitations. DOI 08/20/2022-[place]. [facility]. [facility] remote monitoring. Routine ILR remote. Normal [...] Modality Other Narrative 10/09/2024 7:36 AM CDT [employer]ech LNQ22 Loop Recorder. Dx; Palpitations. DOI 08/20/2022-[place]. [facility]. [facility] remote monitoring. Routine ILR remote. Normal [...] Result from Last 3 Months [place] [phone] [facility] [place] [place] Care Teams Ornamental Ironworker Helper Relationship Specialty Start Date End Date Alberto Castillo MD [address] [place] [address] PCP - General Family Medicine 05/14/21
--- OUTSIDE RECORDS SUMMARY | 2024-11-12 14:45 | XMS_ITS | Clinical Summary ---
Author Organization [facility] Address [address] [facility] [place] [address] Care Team Providers Care Payroll Benefits Administrator Name Role Phone Alberto Castillo MD Primary Care Provider [phone] Source Comments [facility],non-owned Affiliates and Associated Physician Practices is amultiple site organization consisting of ambulatory clinics and hospital sitesin [place], [place], [place] and [place]. This disclosure is being madepursuant to the Care Everywhere program and may not contain all information available regarding this patient. Last updated 17.[facility] Allergies Active Allergy Reactions Criticality Noted Date Comments Diphenhydramine Unknown 01/11/2022 States it gives him hives Codeine Unknown 01/11/2022 States it makes him sick Penicillins Unknown 01/11/2022 States it makes him really sick Medications * Be aware that medications may not be up to date on this document. Alwaysverify current medications with the patient. 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 Closed nondisplaced fracture of second cervical vertebra, unspecified fracture morphology, initial encounter 01/11/2022 Closed displaced fracture of third cervical vertebra, unspecified fracture morphology, initial encounter 01/11/2022 Family History Medical History Relation Name Comments CAD (Coronary Artery Disease) Brother Relation Name Status Comments Brother Social History Tobacco Use Types Packs/Day Years Used Date Smoking Tobacco: Every Day Cigarettes 1 35 Smokeless Tobacco: Never Tobacco Cessation:Ready to Q uit: Not Asked; Counseling Given: Not Answered Alcohol Use Standard Drinks/Week Comments Not Currently 0 (1 standard drink = 0.6 oz pur e alcohol) occ AUDIT-C Answer Date Recorded Q1: How often do you have a drink containing alcohol? Never 01/11/2022 Q2: How many drinks containi ng alcohol do you have on a typical day when you are drinking? Patient does not drink Q3: How often do you have si x or more drinks on one occasion? 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 Not on file Not on file Not on file Last Filed Vital Signs Vital Sign Reading Time Taken Comments Blood Pressure 113/83 03/08/2023 8:54 AM [employer] Pulse 81 03/08/2023 8:54 AM [employer] Temperature 36.1 C (97 F) 03/08/2023 8:54 AM [employer] Respiratory Rate 18 10/12/2022 4:01 PM CDT Oxygen Saturation 100% 03/08/2023 8:54 AM [employer] Inhaled Oxygen Concentration 21% 01/12/2022 3 :20 AM [employer] Weight 63.5 kg (140 lb) 03/08/2023 8:54 AM [employer] Height 165.1 cm (5' 5) 03/08/2023 8:54 AM [employer] Body Mass Index 23.3 03/08/2023 8:54 AM [employer] Plan of Treatment Health Maintenance Due Date Last Done Comments COLOGUARD (AGES 45-75) - COL ON CA SCREENING 1978 COLON MONITORING 1978 COLONOSCOPY - COLON CA SCREENING 1978 CT COLONOGRAPHY - COLON CA SCREENING 1978 Colorectal Cancer Screening 1978 FIT - COLON CA SCREENING 1978 FLEX SIG - COLON CA SCREENING 1978 HIV SCREENING 1993 HEPATITIS C SCREENING 06/16/1996 DTAP/TDAP/TD VACCINES (1 - Tdap) 1997 HEPATITIS B VACCINE (1 of 3 - 19+ 3-dose series) 1997 PNEUMOCOCCAL VACCINE (1 of 2 - PCV) 1997 DEPRESSION SCREENING 03/01/2024 COVID-19 VACCINE (1 - 2023-2 5 season) 2024 INFLUENZA VACCINE (#1) 2024 LIPID TESTING 06/18/2027 06/17/2022, 01/15/2022 ZOSTER VACCINE (1 of 2) 2028 HIB VACCINE Aged Out No longer eligi ble based on patient's age to complete this topic HPV VACCINE Aged Out No longer eligi ble based on patient's age to complete this topic MENINGOCOCCAL (Group B) VACCINE SHARED DECISION-MAKING Aged Out No longer eligible based on patient's age to complete this topic MENINGOCOCCAL GROUPS A/C/Y/W VACCINE Aged Out No longer eligible b ased on patient's age to complete this topic Medical Devices Implanted Type Area Tumbler Machine Operator Device Identifier Shelf Expiration Date Model / Serial / Lot Graft Bone Grftn Dbm Aspt 5x2.5cm Post - [id number] Implanted:Qty: 1 on 01/15/2022 by Junito Sutton MD at [facility] N/A: Posterior Cervical [employer] 12/07/2024 [id number] / [id number] / Screw Set M6 Spne Oc Upr Thor Infnt Implanted:Qty: 5 on 01/15/2022 by Junito Sutton MD at [facility] N/A: Posterior Cervical Medtronic Sofamor Danek Spine [id number] / / Screw 4mm 26mm Ma Spne Bone Implanted:Qty: 1 on 01/15/2022 by Junito Sutton MD at [facility] N/A: Posterior Cervical [employer] [id number] / / Screw 3.5mm 24mm Ma Spne Bone Implanted:Qty: 2 on 01/15/2022 by Junito Sutton MD at [facility] N/A: Posterior Cervical [employer] [id number] / / Ma Screw [id number] 3.5 X 28mm Implanted:Qty: 1 on 01/15/2022 by Junito Sutton MD at [facility] N/A: Posterior Cervical [employer] [id number] / / Screw 3.5mm 26mm Ma Spne Oc Upr Thor Implanted:Qty: 1 on 01/15/2022 by Junito Sutton MD at [facility] N/A: Posterior Cervical [employer] [id number] / / Huy Spnl 40mm 3.5mm Pcut Implanted:Qty: 2 on 01/15/2022 by Junito Sutton MD at [facility] N/A: Posterior Cervical [employer] [id number] / / Procedures Procedure Name Priority Date/Time Associated Diagnosis Comments LIPID PROFILE AM Draw 01/15/2022 1:14 AM [employer] from Last 3 Months or Most Recently Relevant to Health Maintenance Results * (ABNORMAL) LIPID PROFILE (01/15/2022 1:14 AM [employer]) Cholesterol Total 199 <200 mg/dL 01/15/2022 2:57 AM [facility] HDL 52 >40 mg/dL 01/15/2022 2:57 AM [facility] Comment: ATP III Classification of HDL Cholesterol: <40 mg/dL: Considered a major risk factor. >60 mg/dL: Considered a negative risk factor. LDL Calculated 121(H) <100 mg/dL 01/15/2022 2:57 AM [facility] Comment: ATP III Classification of LDL Cholesterol: <100 mg/dL: Optimal 100 - 129 mg/dL: Near Optimal/Above Optimal 130 - 159 mg/dL: Borderline High 160 - 189 mg/dL: High >190 mg/dL: Very High Triglycerides 132 <150 mg/dL 01/15/2022 2:57 AM [facility] Comment: ATP III Classification of Triglycerides: <150 mg/dL: Normal 150 - 199 mg/dL: Borderline High 200 - 400 mg/dL: High >500 mg/dL: Very High Blood BLOOD SPECIMEN / Unknown Lab Venipuncture / Unknown 01/15/2022 1:14 AM [employer] 01/15/2022 2:29 AM [employer] Mary Finchn TRANSMITTER ENGINEER-QM CONSULTANT LAB - CHEMISTRY ORDERABLES F inal Result Performing Organization Address City/[facility] Co de Phone Number [address] [place] [address], [facility] [phone] from Last 3 Months or Most Recently Relevant to Health Maintenance Insurance [facility] MEDICAID - OUT OF STATE * Guarantor: JADON MORRISON Account Type Relation to Patient Date of Phone Billing Address Personal/Family [address] [place] [address] [facility] SELF PAY NO INSURANCE Member Subscriber Plan / Payer (Ef fective for All Dates) Name:Jadon Morrison Member ID:Not on file Relation to Subscriber:Not on file Name:JADON MORRISON Subscriber ID:Not on file Address: [address] [place] [address] Payer ID:Not on file Group ID:Not on file Type:Self Pay Address: [place], [place] * Guarantor: JADON MORRISON Account Type Relation to Patient Date of Phone Billing Address Personal/Family [address] [facility] SELF PAY NO INSURANCE Member Subscriber Plan / Payer (Ef fective for All Dates) Name:Jadon Morrison Member ID:Not on file Relation to Subscriber:Not on file Name:JADON MORRISON Subscriber ID:Not on file Address: [address] [place] [address] Payer ID:Not on file Group ID:Not on file Type:Self Pay Address: [place], [place] * Guarantor: JADON MORRISON Account Type Relation to Patient Date of Phone Billing Address Personal/Family [address] [place] [phone] [place] [address] HEALTH CARE SELF PAY NO INSURANCE Member Subscriber Plan / Payer (Ef fective for All Dates) Name:Jadon Morrison Member ID:Not on file Relation to Subscriber:Not on file Name:JAQUAN MORRISONSunita Subscriber ID:Not on file Address: [address] [place] [address] Payer ID:Not on file Group ID:Not on file Type:Self Pay Address: [place], [place] Advance Directives * Full Code (Latest Code Status on File) Date Activated Date Inactivated Comments 01/15/2022 12:33 PM 01/18/2022 6:00 PM * Full Code Date Activated Date Inactivated Comments 01/11/2022 6:04 PM 01/15/2022 12:33 PM Care Teams Payroll Benefits Administrator Relationship Specialty Start Date End Date Alberto Castillo MD [address] [place] [address] PCP - General Family Medicine 05/11/22
--- NOTE | 2024-11-12 15:28 | ED_ITS ---
HPI - Fall General Chief Complaint: Fall Stated Complaint: Fall last night-tailbone pain Time Seen by Provider: 11/12/24 14:23 Source: patient Mode of arrival: ambulatory Limitations: no limitations History of Present Illness HPI Narrative: Patient is a 44-year-old male who presents to the ED with report of a fall. Patient reports he was taking his dog out in the middle of the night last night and tripped over a concrete block. He fell down onto the block on his tailbone. He did hit his head denies LOC. Complains of pain to his tailbone, difficulty sitting/standing/walking due to pain. Denies dizziness, lightheadedness, neck or back pain. Denies numbness or tingling in extremities, saddle anesthesia. Related Data Home Medications ?Medication ?Instructions ?Recorded ?Confirmed ?Last Taken ?Type aspirin 81 mg tablet,delayed 81 mg PO DAILY 04/15/21 0 06/13/24 Unknown History release Allergies Allergy/AdvReac Type Severity Reaction Status Date / Time pseudoephedrine (From Allergy Intermediate hives Verified 11/12/24 14:05 Sudafed) codeine Allergy Unknown hives Verified 11/12/24 14:05 diphenhydramine Allergy Unknown hives Verified 11/12/24 14:05 Penicillins Allergy Unknown Verified 11/12/24 14:05 Review of Systems Review of Systems: All systems reviewed & are unremarkable except as noted in HPI. All systems reviewed & are unremarkable except as noted in HPI and below PMFSH Past Medical History Medical History Seizure C3 cervical fracture FERNANDA (obstructive sleep apnea) HTN (hypertension) Surgical History Surgical History H/O left wrist surgery Family History Family History Mother Hypertension Sibling Seizure Hypertension Heart disease Social History Social History Smoking packs per day: 0.5 Smoking cigarettes per day: 10.0 Years smoked: 25 Smoking pack-years: 12.50 Smoking status: Current every day smoker Tobacco type: cigarettes Second hand tobacco smoke exposure: Yes Alcohol intake: former Substance use: current Substance use type: marijuana Living arrangements: with family Occupation/Education: occupation Gender identity (if verbalized by the patient): Male Sexual Orientation (if Verbalized by the Patient): Straight or Heterosexual Spiritual care concerns: No Exam Narrative: GENERAL: Well appearing, well-nourished, non-toxic, in no acute distress. HEAD: Normocephalic, atraumatic. NECK: No midline cervical spinal tenderness. RESPIRATORY: Airway patent, respirations nonlabored. CARDIOVASCULAR: Regular rate and rhythm MUSCULOSKELETAL: Moves all extremities. No gross deformities. No significant lumbar midline spinal tenderness. Tenderness to palpation over sacral/coccyx region. No significant bruising. SKIN: Warm, dry, normal color. NEURO: A&O X3. Speech clear. Cranial nerves II-XII grossly intact. Steady gait. No ataxic movements. Mildly tremulous. PSYCHIATRIC: Appropriate mood and affect. Normal interaction. Course Vital Signs Vital signs: Vital Signs Temperature 98.4 F 11/12/24 14:16 Pulse Rate 92 11/12/24 14:16 Respiratory Rate 19 11/12/24 14:16 Blood Pressure 157/109 H 11/12/24 14:16 Pulse Oximetry 98 11/12/24 14:16 Oxygen Delivery Room Air 11/12/24 14:16 Temperature 98.4 F 11/12/24 14:16 Pulse Rate 82 11/12/24 16:54 Respiratory Rate 18 11/12/24 16:54 Blood Pressure 126/79 11/12/24 16:54 Pulse Oximetry 98 11/12/24 16:54 Oxygen Delivery Room Air 11/12/24 14:16 MDM - Fall MDM Narrative Medical decision making narrative: Patient presented to ED status post fall last night with pain to his tailbone, head injury. No LOC. Vital signs stable upon arrival. Patient neurologically intact. No evidence of cord compression or cauda equina. No significant midline spinal tenderness. CT brain clear CT cervical spine negative CT pelvis also without acute fracture or other traumatic findings. Discussed likelihood of coccyx contusion and continued management of such. Will prescribe short course of pain medicine for home use. Discussed rice therapy, qing johnson. Patient given return precautions. He agrees with plan. Discharged in stable condition. Medical Records Attestation: I reviewed the patient's medical records. Imaging Data Attestation: I personally reviewed and interpreted this imaging study as follows: Radiologist's impression: ITS Impressions Head CT 11/12/24 16:39 Impression: 1.No acute intracranial abnormality. Cervical Spine CT 11/12/24 16:42 Impression: No acute abnormality. Pelvis CT 11/12/24 16:46 IMPRESSION: No fracture identified Discharge Plan Discharge Clinical Impression: Fall from ground level Contusion of coccyx Qualifiers: Encounter type: initial encounter Qualified Code(s): S30.0XXA - Contusion of lower back and pelvis, initial encounter Patient Disposition: Home Condition: Stable Instructions: Antibiotic Form, Coccyx Injury (ED) Additional Instructions: Your imaging did not show any evidence of fractures. You will likely be sore for a few weeks. Recommend frequent ice to tailbone. Utilize lidocaine patches to area of pain. Recommend donut pillow. Continue Tylenol and Ibuprofen as needed for pain. [place] as needed for more severe pain. Recommend taking these at night as they may cause sedation. Do not drive, operate heavy machinery, drink alcohol while on pain medication as this may cause further sedation. Follow-up with your primary care doctor for further evaluation. Return to the ED if you experience worsening or severe pain, recurrent injury, numbness in groin or legs, going to the bathroom without meaning to, unable to keep down food or drink, or any other symptoms of concern. Patient Language: [place] Island[place] Prescriptions: New hydrocodone-acetaminophen 5-325 mg tablet 1 tablet PO Q6H PRN (Reason: pain) Qty: 15 0RF lidocaine 5 % adhesive patch,medicated 1 patch topical DAILY Qty: 15 0RF Rx Instructions: leave on most painful area for up to 12 hrs No Action aspirin 81 mg tablet,delayed release (DR/EC) 81 mg PO DAILY metoprolol tartrate 25 mg tablet 25 mg PO BID Qty: 60 2RF lisinopril 20 mg tablet 20 mg PO DAILY Qty: 90 1RF Follow-up/Referrals: Alberto Castillo MD [[facility] Provider, [facility]] Time of Disposition: 17:02
[2024-11-12 15:33] VITALS: BP 128/89; PULSE 89; RESP 18; O2SAT 100
[2024-11-12] MEDS: LIDOCAINE 5% PATCH 1 PATCH TRANSDERM (15:40)
[2024-11-12] MEDS: HYDROcodone/acetaminophen (*CRX) 5-325 MG TABLET 1 TAB PO (15:41)
[2024-11-12 16:54] VITALS: BP 126/79; PULSE 82; RESP 18; O2SAT 98
[2024-11-12] MEDS: KETOROLAC (*BKC) 60 MG/2 ML VIAL IM (17:15)
== END 2024-11-12 17:33 | disposition home or self-care (01) ==
PROVIDERS: Emergency Provider Physician Assistant; PCP Family Medicine
DX: S30.0XXA Contusion of lower back and pelvis, initial encounter (principal); I10 Essential (primary) hypertension; F17.210 Nicotine dependence, cigarettes, uncomplicated; G47.30 Sleep apnea, unspecified; W01.0XXA Fall on same level from slipping, tripping and stumbling without subsequent striking against object, initial encounter
CPT/HCPCS: 70450; 72125; 72192; 96372; 99284; A9270; J1885